=== PATIENT | male | born 1965 | race African-American/Black ===

== ENCOUNTER 2018-10-07 22:00 | Observation (INO) | payer OTHER ==
[2018-10-07] MEDS ORDERED: SODIUM CHLORIDE 0.9% 1,000 ML IV STA (22:05)
--- NOTE | 2018-10-07 22:19 | ED ---
Chest Pain HPI - General Chief Complaint: Chest Pain Stated Complaint: OD Chest Pain Rt Arm Numbness Time Seen by Provider: 10/07/18 22:05 Source: patient, EMS, RN notes reviewed, old records reviewed Mode of arrival: EMS Limitations: no limitations - History of Present Illness Initial Comments: This is a 53-year-old male the ER for evaluation of chest pain, chest pain from [place] today. Right-sided chest pain right arm pain right arm numbness and tingling. Patient has known history of heart disease family history of heart disease. Patient is unsure of exact heart disease and he does have stents or not. does smoke and does has history of opiate and cocaine abuse. Patient's chest pain is improved currently but it did happen about 3 hours prior to arrival and was persistent MD Complaint: chest pain -: hour(s) Onset: during rest Pain Location: right chest Pain Radiation: RUE Severity: moderate Severity scale (1-10): 5 Quality: aching, heaviness Consistency: constant, now resolved Improves With: nothing Worsens With: nothing Anginal Symptoms: other (none) Other Symptoms: palpitations Treatments Prior to Arrival: none - Related Data Home Medications Medication Instructions Recorded Confirmed Acetaminophen [Tylenol 8 Hour] 650 mg PO Q4H 10/07/18 10/07/18 Buprenorphine HCl/Naloxone HCl 1 film PO Q6H 10/07/18 10/07/18 [Suboxone 4 mg-1 mg Sl Film] Calcium/Magnesium/Zinc 1 tab PO TID PRN 10/07/18 10/07/18 [Tsmaekn-Klkmtqave-Gluk Tablet] Chlorpheniramine Maleate 4 mg PO Q4H 10/07/18 10/07/18 [Chlor-Trimeton] Hydrochlorothiazide 12.5 mg PO DAILY 10/07/18 10/07/18 Ibuprofen [Motrin] 600 mg PO Q6H 10/07/18 10/07/18 LORazepam [Ativan] 1 - 2 tab PO Q4H 10/07/18 10/07/18 Magnesium Hydroxide [Milk of 7,200 mg PO BID 10/07/18 10/07/18 Magnesia Concentrate] Multivitamins, Thera [Multivitamin 1 tab PO DAILY 10/07/18 10/07/18 (formulary)] Ondansetron HCl [Zofran] 8 mg PO Q6H PRN 10/07/18 10/07/18 Ondansetron [Zofran] 4 mg IM Q6H PRN 10/07/18 10/07/18 cloNIDine HCL [Catapres] 1 - 3 tab PO Q4H PRN 10/07/18 10/07/18 traZODone HCL [TraZODone HCl] 1 - 3 tab PO HS 10/07/18 10/07/18 Allergies Allergy/AdvReac Type Severity Reaction Status Date / Time No Known Allergies Allergy Verified 10/07/18 22:43 Review of Systems ROS Statement: Those systems with pertinent positive or pertinent negative responses have been documented in the HPI. ROS Other: All systems not noted in ROS Statement are negative. EKG Findings - EKG Comments: EKG Findings:: EKG shows sinus rhythm rate of 77, ME 146, QRS 80, QTC 463 Past Medical History Past Medical History: Hypertension History of Any Multi-Drug Resistant Organisms: None Reported Past Surgical History: Heart Catheterization With Stent, Orthopedic Surgery Past Psychological History: No Psychological Hx Reported Smoking Status: Current every day smoker Past Alcohol Use History: Occasional Past Drug Use History: Cocaine, Opiates General Exam Limitations: no limitations General appearance: alert, in no apparent distress Head exam: Present: atraumatic, normocephalic, normal inspection Eye exam: Present: normal appearance, PERRL, EOMI. Absent: scleral icterus, conjunctival injection, periorbital swelling ENT exam: Present: normal exam, mucous membranes moist Neck exam: Present: normal inspection. Absent: tenderness, meningismus, lymphadenopathy Respiratory exam: Present: normal lung sounds bilaterally. Absent: respiratory distress, wheezes, rales, rhonchi, stridor Cardiovascular Exam: Present: regular rate, normal rhythm, normal heart sounds. Absent: systolic murmur, diastolic murmur, rubs, gallop, clicks GI/Abdominal exam: Present: soft, normal bowel sounds. Absent: distended, tenderness, guarding, rebound, rigid Extremities exam: Present: normal inspection, full ROM, normal capillary refill. Absent: tenderness, pedal edema, joint swelling, calf tenderness Back exam: Present: normal inspection Neurological exam: Present: alert, oriented X3, CN II-XII intact Psychiatric exam: Present: normal affect, normal mood Skin exam: Present: warm, dry, intact, normal color. Absent: rash Course Vital Signs 10/07/18 10/07/18 22:02 23:08 Temperature 99.4 F 98.2 F Pulse Rate 83 78 Respiratory 20 20 Rate Blood Pressure 119/86 119/86 O2 Sat by Pulse 99 97 Oximetry - Reevaluation(s) Reevaluation #1: 10/07/18 22:18 Medical record reviewed Chest Pain MDM - MDM 53 male to the ED co CP, history of HTN, coming w atypical chest pain, normal troponin,, strong family history of heart disease, normal EKG, will admit for continued monitoring, Critical Care Time Critical Care Time: Yes Total Critical Care Time: 31 Disposition Clinical Impression: Chest pain Disposition: ADMITTED IP TO THIS HOSP Condition: Undetermined Instructions (If sedation given, give patient instructions): Chest Pain (ED) Is patient prescribed a controlled substance at d/c from ED?: No Referrals: Maco Cooper MD [Primary Care Provider] - 1-2 days
[2018-10-07] MEDS ORDERED: NITROGLYCERIN SL TABS 0.4 MG TAB SUBLINGUAL PRN (22:22)
[2018-10-07] MEDS ORDERED: ASPIRIN 81 MG PO STA (22:22)
[2018-10-07 22:37] LABS: Appearance,Urine Clear (Clear); Bilirubin,Urine Negative (Negative); Blood,Urine Negative (Negative); Color,Urine Yellow; Glucose,Urine (UA) Negative (Negative); Ketones,Urine Negative (Negative); Leukocyte Esterase,Urine Negative (Negative); Nitrite,Urine Negative (Negative); Protein,Urine Trace (Negative); Specific Gravity,Urine 1.028 (1.001-1.035)
[2018-10-07 22:47] LABS: Cocaine Screen,Urine Not Detected (NotDetected); Phencyclidine Screen,Urine Not Detected (NotDetected); Urn Cannabinoid Scrn Not Detected (NotDetected)
[2018-10-07 22:48] LABS: Amphetamine Screen,Urine Not Detected (NotDetected); Barbiturate Screen,Urine Not Detected (NotDetected); Benzodiazepines Screen,Urine Not Detected (NotDetected); Methadone Screen, Urine Not Detected (NotDetected); Opiate Screen,Urine Not Detected (NotDetected); Oxycodone Screen, Urine Not Detected (NotDetected); Tricyclic Antidepressant,Urine Not Detected (NotDetected)
[2018-10-07 22:48] LABS: Basophils # (A) 0.1 k/uL (0-0.2); Basophils % (A) 1 %; Eosinophils # (A) 0.5 k/uL (0-0.7); Eosinophils % (A) 4 %; HCT 39.4 % (39.0-53.0); HGB 12.5 gm/dL (13.0-17.5); Lymphocytes % (A) 24 %; MCH 27.7 pg (25.0-35.0); MCHC 31.8 g/dL (31.0-37.0); MCV 87.2 fL (80.0-100.0); Mean Platelet Volume 7.4; Monocytes # (A) 0.8 k/uL (0-1.0); Monocytes % (A) 7 %; Neutrophils # (A) 8.1 k/uL (1.3-7.7); Neutrophils % (A) 64 %; Platelet Count 238 k/uL (150-450); RBC 4.52 m/uL (4.30-5.90); RDW 13.6 % (11.5-15.5); WBC 12.6 k/uL (3.8-10.6)
[2018-10-07 22:52] LABS: ALT 23 U/L (21-72); AST 20 U/L (17-59); Acetaminophen <10.0 ug/mL; Albumin 3.9 g/dL (3.5-5.0); Alcohol <10 mg/dL; Alkaline Phosphatase 70 U/L (38-126); Anion Gap 5 mmol/L; Blood Urea Nitrogen 17 mg/dL (9-20); Calcium 9.3 mg/dL (8.4-10.2); Carbon Dioxide 27 mmol/L (22-30); Chloride 109 mmol/L (98-107); Glucose 81 mg/dL (74-99); Lipase 40 U/L (23-300); Magnesium 1.9 mg/dL (1.6-2.3); Salicylate <1.0 mg/dL; Sodium 141 mmol/L (137-145); Total Bilirubin 0.4 mg/dL (0.2-1.3)
[2018-10-07] MEDS: SODIUM CHLORIDE 0.9% 1,000 ML IV SCH (22:52)
[2018-10-07 22:56] LABS: D-Dimer 0.31 mg/L FEU (<0.60); Partial Thromboplastin Time 25.2 sec (22.0-30.0); Prothrombin Time 10.3 sec (9.0-12.0)
--- NOTE | 2018-10-07 23:10 | XR ---
EXAM: XR Chest, 2 Views CLINICAL HISTORY: Chest pain TECHNIQUE: Frontal and lateral views of the chest. COMPARISON: No relevant prior studies available. FINDINGS: Lungs: Unremarkable. No consolidation. Pleural space: Unremarkable. No pneumothorax. Heart: Unremarkable. No cardiomegaly. Mediastinum: Unremarkable. Bones/joints: Unremarkable. IMPRESSION: Normal chest x-rays.
[2018-10-08] MEDS: ACETAMINOPHEN TAB 325 MG TAB PO PRN ×2 (00:32→14:54)
--- NOTE | 2018-10-08 00:55 | P.HPIM ---
History of Present Illness H&P Date: 10/08/18 The patient is a 53 yo M with a PMH of HTN, opioid abuse, and ?CAD (underwent cath in 2014, doesn't recall if stents were placed, notes he was on Aspirin only) presented to the ED from [facility] for chest pain that started suddenly today at 6 pm. The patient reports the pain as a sharp substernal pain, 7/10, intermittent, w/ no clear inciting or alleviating factors, w/ associated R hand numbness, shortness of breath, and some diaphoresis. He reports that the pain resolved after receiving Nitro in the ED. He reports that he hasn't had such pain in the past. Denied cough, fever, or chills. Also denied abdominal pain, nausea, vomiting, or dizziness. Of note, the patient had been inpatient at [facility] sine 09/26/18 and reports last use of heroin (snorts) on 09/26/18. The patient underwent an extensive evaluation in the ED w/ Troponin < 0.012, WBC 12.6, Hgb 12.5, and platelets 238. EKG as reviewed by me was NSR @ [address] bpm [address] no acute [address]-T wave changes noted. CXR was unremarkable. The patient was admitted to the medicine service for further management of chest pain. Review of Systems Pertinent positives and negatives as discussed in HPI, a complete review of systems was performed and all other systems are negative. Past Medical History Past Medical History: Hypertension History of Any Multi-Drug Resistant Organisms: None Reported Past Surgical History: Heart Catheterization With Stent, Orthopedic Surgery Additional Past Surgical History / Comment(s): L knee Past Anesthesia/Blood Transfusion Reactions: No Reported Reaction Date of Last Stent Placement:: 2014 Smoking Status: Current every day smoker - Past Family History Father Family Medical History: CVA/TIA Additional Family Medical History / Comment(s): of CVA Mother Family Medical History: Cancer, Myocardial Infarction (ID) Additional Family Medical History / Comment(s): Breast CA Medications and Allergies Home Medications Medication Instructions Recorded Confirmed Type Acetaminophen [Tylenol 8 Hour] 650 mg PO Q4H 10/07/18 10/07/18 History Calcium/Magnesium/Zinc 1 tab PO TID PRN 10/07/18 10/08/18 History [Opxneuq-Goxipxagc-Ptua Tablet] Chlorpheniramine Maleate 4 mg PO Q4H PRN 10/07/18 10/08/18 History [Chlor-Trimeton] Hydrochlorothiazide 12.5 mg PO DAILY 10/07/18 10/07/18 History Ibuprofen [Motrin] 600 mg PO Q6H 10/07/18 10/07/18 History LORazepam [Ativan] 2 tab PO Q4H 10/07/18 10/08/18 History Magnesium Hydroxide [Milk of 7,200 mg PO BID PRN 10/07/18 10/07/18 History Magnesia Concentrate] Multivitamins, Thera [Multivitamin 1 tab PO DAILY 10/07/18 10/08/18 History (formulary)] Ondansetron HCl [Zofran] 8 mg PO Q6H PRN 10/07/18 10/08/18 History cloNIDine HCL [Catapres] 1 - 3 tab PO Q4H PRN 10/07/18 10/07/18 History traZODone HCL [TraZODone HCl] 1 - 3 tab PO HS 10/07/18 10/07/18 History Allergies Allergy/AdvReac Type Severity Reaction Status Date / Time No Known Allergies Allergy Verified 10/08/18 00:17 Physical Exam Vitals: Vital Signs Temp Pulse Pulse Resp BP BP Pulse Ox 10/08/18 00:00 98.6 F 75 16 166/89 100 10/07/18 23:29 78 18 119/56 97 10/07/18 23:08 98.2 F 78 20 119/86 97 10/07/18 22:02 99.4 F 83 20 119/86 99 Intake and Output 10/07/18 10/07/18 10/08/18 14:59 22:59 06:59 Other: # Voids 1 Weight 124.284 kg General: non toxic, no distress, appears at stated age, obese Derm: no unusual rashes/lesions no unusual ecchymoses, warm, dry Head: atraumatic, normocephalic, symmetric Eyes: EOMI, no lid lag, anicteric sclera, pupils equal round reactive to light ENT: Nose and ears atraumatic, no thrush, no pharyngeal erythema Neck: No thyromegaly, no cervical lymphadenopathy, trachea midline, supple Mouth: no lip lesion, mucus membranes moist Cardiovascular: S1S2 reg, no murmur, positive posterior tibial pulse bilateral, no edema, capillary refill less than 2 seconds Lungs: CTA bilateral, no rhonchi, no rales , no accessory muscle use Abdominal: soft, nontender to palpation, no guarding, no appreciable organomegaly, normal bowel sounds Ext: no gross muscle atrophy, muscle strength 5 out of 5 in all 4 extremities grossly, no contractures, Neuro: CN II-XI grossly intact, light touch intact all 4 extremities, finger to nose within normal limits, Psych: Alert, oriented, appropriate affect Results CBC & Chem 7: 10/07/18 22:32 10/07/18 22:32 Labs: Abnormal Lab Results - Last 24 Hours (Table) 10/07/18 10/07/18 10/07/18 Range/Units 22:22 22:32 22:32 WBC 12.6 H (3.8-10.6) k/uL Hgb 12.5 L (13.0-17.5) gm/dL Neutrophils # 8.1 H (1.3-7.7) k/uL Chloride 109 H (98-107) mmol/L Urine Protein Trace H (Negative) Thrombosis Risk Factor Assmnt - Choose All That Apply Each Factor Represents 1 point: Age 41-60 years Thrombosis Risk Factor Assessment Total Risk Factor Score: 1 Thrombosis Risk Factor Assessment Level: Low Risk Assessment and Plan Plan: Chest pain, r/o ACS -Trend troponin and EKG -Cardiac monitoring -Cardiology consult Leukocytosis, likely reactive -Monitor CBC for now -No signs of infection Hypertension -Resume home medications DVT//GI prophylaxis -Heparin -No indication for GI proph The patient is admitted with an anticipated less than 2 midnight stay for evaluation of chest pain. CODE STATUS: Full Code Discussed with: Patient Anticipated discharge date: 10/09/[address]: Home A total of 35 minutes was spent on the care of this complex patient more than 50% of the time was spent in counseling and care coordination.
[2018-10-08] MEDS ORDERED: traZODone HCL 50 MG TAB PO SCH (01:35)
[2018-10-08] MEDS ORDERED: LORazepam 1 MG TAB PO PRN (01:36)
[2018-10-08] MEDS ORDERED: LORazepam 1 MG TAB PO SCH (01:45)
[2018-10-08 03:50] VITALS: RESP 18
[2018-10-08 05:40] LABS: HCT 34.4 % (39.0-53.0); HGB 11.4 gm/dL (13.0-17.5); MCH 28.8 pg (25.0-35.0); MCV 87.1 fL (80.0-100.0); Mean Platelet Volume 8.1; Platelet Count 207 k/uL (150-450); RBC 3.95 m/uL (4.30-5.90); RDW 13.4 % (11.5-15.5); WBC 11.1 k/uL (3.8-10.6)
[2018-10-08 05:52] LABS: Cholesterol 136 mg/dL (<200); HDL Cholesterol 41 mg/dL (40-60); LDL Cholesterol,Calculated 86 mg/dL (0-99); Triglycerides 43 mg/dL (<150)
[2018-10-08] MEDS: HEPARIN SODIUM,PORCINE 5,000 UNIT/ML 1 ML VIAL SQ SCH ×2 (08:05→14:51)
[2018-10-08] MEDS: SODIUM CHLORIDE 0.9% 1,000 ML IV SCH (08:05)
[2018-10-08] MEDS ORDERED: CAFFEINE CITRATE 60 MG/3 ML VIAL IV PRN (08:15)
[2018-10-08] MEDS ORDERED: AMINOPHYLLINE 500 MG/20 ML VIAL IV PRN (08:15)
[2018-10-08] MEDS ORDERED: DIPYRIDAMOLE 70 MG in SODIUM CHLORIDE 0.9% 36 ML IV ONE (08:30)
[2018-10-08] MEDS ORDERED: ASPIRIN 325 MG TAB PO SCH (09:00)
[2018-10-08] MEDS ORDERED: ATORVASTATIN 80 MG TAB PO SCH (09:00)
--- NOTE | 2018-10-08 10:59 | CONS ---
CONSULTATION This is a 53-year-old gentleman who has some opioid addiction and is in a withdrawal program at [facility]. While he was at [facility], he complained of having some discomfort in the chest which was initially a right-sided discomfort then went to the left side and then to the left arm. The pain lasted exactly 60 seconds or less, but it became recurrent, occurring almost every 5-10 minutes and therefore he came into the hospital. The quality of pain is very atypical. About 5 years ago in [facility], he had a cardiac cath which according to him was unremarkable. He does have hypertension and opioid addiction. He is reasonably active person, but has had some injury to his knee and required arthroscopic surgery and since then he has not been very physically very active physically. At the time of my evaluation, he is asymptomatic resting comfortably without symptoms. PAST MEDICAL HISTORY: This is remarkable for hypertension or opioid addiction and nicotine addiction. Social history patient smokes and is working on opioid addiction. Does not consume alcohol on a regular basis at this time. He is status post cholecystectomy and arthroscopic surgery of the knee. ALLERGIES: None. MEDICATIONS: At home include clonidine, clonidine, chlorpheniramine maleate, Zofran 80 van, ibuprofen, and some milk of magnesia. On examination, his vitals, his blood pressure is 118/70, pulse rate is 70 per minute regular HEENT unremarkable. Fundus was not examined by me neck is supple. No JVD. I do not hear a carotid bruit. There is no thyromegaly heart exam reveals S1, S2 heard normally. No rub, murmur or gallop lungs are clear. Abdomen is soft, nontender. Lower extremities reveal diminished pulses. No edema. Central nervous system is normal EKG revealed sinus mechanism without any acute changes. LABORATORY DATA: Revealed unremarkable troponins. IMPRESSION: 1. Chest pain, atypical. Cannot exclude angina. 2. Hypertension under good control. 3. Zero. Diction in a detox/weaning program at [facility]. 4. History of cholecystectomy and arthroscopic surgery. RECOMMENDATIONS: I am recommending that we increase activity and proceed with a Lexiscan stress test and echo and if these are normal, he can go back to [facility]. Discussed my thoughts in detail with the patient thank you very much for the consult indication. MMODL / IJN: [id number] /
[2018-10-08 11:50] VITALS: BP 128/78; PULSE 83; TEMP 98.4
--- NOTE | 2018-10-08 12:55 | ECHOF ---
Referral Reason:cp MEASUREMENTS -------- HEIGHT: 188.0 cm WEIGHT: 124.3 kg BP: 120/77 RVIDd: 3.3 cm (< 3.3) IVSd: 1.7 cm (0.6 - 1.1) LVIDd: 4.0 cm (3.9 - 5.3) LVPWd: 1.6 cm (0.6 - 1.1) IVSs: 2.1 cm LVIDs: 2.6 cm LVPWs: 2.0 cm LA Diam: 4.8 cm (2.7 - 3.8) LAESV Index (A-L): 47.33 ml/m Ao Diam: 3.0 cm (2.0 - 3.7) AV Cusp: 2.4 cm (1.5 - 2.6) EPSS: 0.5 cm MV E John: 1.39 m/s MV DecT: 123 ms MV A John: 0.83 m/s MV E/A Ratio: 1.67 RAP: 5.00 mmHg RVSP: 54.29 mmHg MV EF SLOPE: 27.37 mm/s (70 - 150) MV EXCURSION: 1.85 cm (> 18.000) FINDINGS -------- Resting tachycardia (HR>100bpm). This was a technically good study. The left ventricular size is normal. There is severe concentric left ventricular hypertrophy. Ove rall left ventricular systolic function is normal with, an EF between 65 - 70 %. The right ventricle is mildly enlarged. LA is severely dilated >40 ml/m2 The right atrium is normal in size. The aortic valve is trileaflet and appears structurally normal. There is mild aortic valve sclerosi s. The mitral valve leaflets are mildly thickened. Eeak-xg-cizjfhmk mitral regurgitation is present. Mild tricuspid regurgitation present. There is moderate pulmonary hypertension. The right ventric ular systolic pressure, as measured by Doppler, is 54.29mmHg. Moderate pulmonic regurgitation. The aortic root size is normal. Normal inferior vena cava with normal inspiratory collapse consistent with estimated right atrial pre ssure of 5 mmHg. There is no pericardial effusion. CONCLUSIONS -------- 1. Resting tachycardia (HR>100bpm). 2. This was a technically good study. 3. The left ventricular size is normal. 4. There is severe concentric left ventricular hypertrophy. 5. Overall left ventricular systolic function is normal with, an EF between 65 - 70 %. 6. The right ventricle is mildly enlarged. 7. LA is severely dilated >40 ml/m2 8. The right atrium is normal in size. 9. The aortic valve is trileaflet and appears structurally normal. 10. There is mild aortic valve sclerosis. 11. The mitral valve leaflets are mildly thickened. 12. Mild tricuspid regurgitation present. 13. There is moderate pulmonary hypertension. 14. The right ventricular systolic pressure, as measured by Doppler, is 54.29mmHg. 15. Moderate pulmonic regurgitation. 16. The aortic root size is normal. 17. Normal inferior vena cava with normal inspiratory collapse consistent with estimated right atrial pressure of 5 mmHg. 18. There is no pericardial effusion. SENIOR BUDGET ANALYST: GINA Ortega
[2018-10-08] MEDS ORDERED: METOPROLOL SUCCINATE (ER) 50 MG TAB.ER.24H PO SCH (13:00)
--- NOTE | 2018-10-08 13:12 | NM ---
EXAMINATION TYPE: NM stress persantine cardiolite DATE OF EXAM: 10/08/2018 COMPARISON: NONE HISTORY: Chest pain TECHNIQUE: After the intravenous administration of 9.83 mCi Tc 99m Sestamibi - Cardiolite resting SP ECT images acquired 45 minutes post injection. The patient received Persantine, 26.7 mCi Tc 99m Sestamibi - Stress images obtained 30 minutes post i njection FINDINGS: Review of stress and rest SPECT images demonstrates no distinct perfusion abnormality. Gated analysi s shows normal wall motion with an estimated left ventricular ejection fraction of 53 %. IMPRESSION: 1. No stress-induced ischemic change.
--- NOTE | 2018-10-08 13:59 | P.PN ---
Progress Note - Text Echocardiogram reviewed and reveals significant concentric hypertrophy. Recommend initiation of toprol 50 mg daily. He should follow up closely with his primary care physician once he completes his rehabilitation program.
--- NOTE | 2018-10-08 14:05 | EST ---
EXERCISE STRESS AGE: 53 SEX: M HT: 6'2" WT: 274 PROTOCOL: Persantine Cardiolite Stress Test HEART RATE REST: 82 BLOOD PRESSURE REST: 120/77 MAXIMUM HEART RATE ACHIEVED: 106 MAXIMUM BLOOD PRESSURE: 115/71 85% MPHR: 142 100% MPHR: 167 INDICATIONS: Chest pain. CLINICAL INFORMATION: Baseline EKG revealed a sinus mechanism without significant ST-T changes. Borderline voltage criteria for LVH was noted. Patient was administered Persantine as per protocol and heart rate changed from 82 to 106 beats per minute and blood pressure changed from 120/77 to 115/71, and came back to baseline. No significant symptoms were reported. By EKG criteria, this is an unremarkable Lexiscan stress test. The nuclear scan results which are more pertinent, will be reported by the radiologist. GARCIA / ROSA ISELAN: [id number] /
--- NOTE | 2018-10-08 15:10 | P.DS ---
Providers Date of admission: 10/07/18 22:22 Expected date of discharge: 10/08/18 Attending physician: Yakov Sue MD Consults: 10/08/18 00:57 Consult Physician Urgent Consulting Provider: Jacey Zamarripa Consult Reason/Comments: Chest pain, r/o ACS Do you want consulting provider notified?: Yes Primary care physician: Maco Cooper - Discharge Diagnosis(es) (1) Atypical chest pain Current Visit: Yes Status: Acute (2) Essential hypertension Current Visit: Yes Status: Acute (3) Opioid dependence Current Visit: Yes Status: Acute Hospital Course: The patient is a 53-year-old -[place] male that was placed on observation for atypical chest pain with need to rule out ACS, his EKG demonstrated sinus mechanism with no suggestion of any acute ischemia. Workup with cardiac troponins were negative, 2-D echocardiogram was performed which showed severe left concentric ventricle hypertrophy, with a preserved ejection fraction of 65-70%, with a severely dilated left atrium. Cardiology was consulted and patient was recommended to have a Lexiscan stress test which was negative for any suggestion of her some ischemia or coronary disease patient was subsequent A cleared for discharge back to [place], he was initiated on Toprol 50 mg XL daily and transferred back in stable condition. This transfer process took approximately 35 minutes. Focused exam Cardiovascular: Regular rate and rhythm, no murmurs rubs or gallops, PMI nondisplaced, no JVD or peripheral edema Patient Condition at Discharge: Good Plan - Discharge Summary New Discharge Prescriptions: New Metoprolol Succinate (ER) [Toprol XL] 50 mg PO DAILY #30 tab.er.24h Continue traZODone HCL 150 mg PO HS cloNIDine HCL [Catapres] 1 - 3 tab PO Q4H PRN PRN Reason: BLOOD PRESSURE 160/100 Ibuprofen [Motrin] 600 mg PO Q6H Chlorpheniramine Maleate [Chlor-Trimeton] 4 mg PO Q4H PRN PRN Reason: Allergy Symptoms Acetaminophen [Tylenol 8 Hour] 650 mg PO Q4H Ondansetron HCl [Zofran] 8 mg PO Q6H PRN PRN Reason: Nausea And Vomiting Calcium/Magnesium/Zinc [Mmpnkzy-Ohwpzoyqc-Nfkl Tablet] 1 tab PO TID PRN PRN Reason: MUSCLE CRAMPS Hydrochlorothiazide 12.5 mg PO DAILY Multivitamins, Thera [Multivitamin (formulary)] 1 tab PO DAILY LORazepam [Ativan] 2 tab PO Q4H Magnesium Hydroxide [Milk of Magnesia Concentrate] 7,200 mg PO BID PRN PRN Reason: Constipation Discharge Medication List Acetaminophen [Tylenol 8 Hour] 650 mg PO Q4H 10/07/18 [History] Calcium/Magnesium/Zinc [Khvlxpx-Qcefitwyb-Pazw Tablet] 1 tab PO TID PRN 10/07/18 [History] Chlorpheniramine Maleate [Chlor-Trimeton] 4 mg PO Q4H PRN 10/07/18 [History] Hydrochlorothiazide 12.5 mg PO DAILY 10/07/18 [History] Ibuprofen [Motrin] 600 mg PO Q6H 10/07/18 [History] LORazepam [Ativan] 2 tab PO Q4H 10/07/18 [History] Magnesium Hydroxide [Milk of Magnesia Concentrate] 7,200 mg PO BID PRN 10/07/18 [History] Multivitamins, Thera [Multivitamin (formulary)] 1 tab PO DAILY 10/07/18 [History] Ondansetron HCl [Zofran] 8 mg PO Q6H PRN 10/07/18 [History] cloNIDine HCL [Catapres] 1 - 3 tab PO Q4H PRN 10/07/18 [History] traZODone HCL 150 mg PO HS 10/07/18 [History] Metoprolol Succinate (ER) [Toprol XL] 50 mg PO DAILY #30 tab.er.24h 10/08/18 [Rx] Follow up Appointment(s)/Referral(s): Maco Cooper MD [Primary Care Provider] - 1-2 days Patient Instructions/Handouts: Chest Pain (ED) Discharge Disposition: HOME SELF-CARE
== END 2018-10-08 15:10 | disposition home or self-care (01) ==
LOC: EC 22:00 → 1SOBS 22:22
PROVIDERS: ADMIT Internal Medicine; ATTEND Internal Medicine
DX: R07.89 Other chest pain (principal); D72.829 Elevated white blood cell count, unspecified; I10 Essential (primary) hypertension; F11.20 Opioid dependence, uncomplicated; Z90.49 Acquired absence of other specified parts of digestive tract; F17.200 Nicotine dependence, unspecified, uncomplicated; I25.10 Atherosclerotic heart disease of native coronary artery without angina pectoris; Z79.899 Other long term (current) drug therapy; Z80.3 Family history of malignant neoplasm of breast; Z82.3 Family history of stroke; Z82.49 Family history of ischemic heart disease and other diseases of the circulatory system
CPT/HCPCS: 96361 ×2; 96372; 96360; 99291; 36415; 93005; 93017; 93306; 85379; 80061; 80053; 83690; 83735; 84484 ×2; 85025; 85027; 85610; 85730; 81003; 80306; 83520 ×2; 71046; 78452; G0378 ×2; G0480; A9500; J1644; 80320